=== PATIENT | female | born 1940 | race Caucasian/White ===

== ENCOUNTER 2018-02-06 18:48 | Emergency (ER) | payer MEDICARE, BC ==
[2018-02-06 19:08] VITALS: BP 162/72
[2018-02-06] MEDS ORDERED: methylPREDNISolone Sodium Succinate 125 MG/2 ML SDV IM ONE (19:45)
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
== END 2018-02-06 20:18 | disposition home or self-care (01) ==
LOC: JP.ED 18:48
DX: T78.40XA Allergy, unspecified, initial encounter (principal); I10 Essential (primary) hypertension; E03.9 Hypothyroidism, unspecified; E78.00 Pure hypercholesterolemia, unspecified; J45.909 Unspecified asthma, uncomplicated; Z79.899 Other long term (current) drug therapy; Z91.040 Latex allergy status; Z88.0 Allergy status to penicillin; Z91.018 Allergy to other foods
CPT/HCPCS: 96372; 99283; J2930; 99282

== ENCOUNTER 2018-05-18 21:02 | Emergency (ER) | payer MEDICARE, BC ==
[2018-05-18 22:01] VITALS: BP 182/83
[2018-05-18] MEDS ORDERED: Ketorolac 30 MG/ML SDV IM ONE (22:43)
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
[2018-05-18] MEDS ORDERED: Magnesium Oxide 400 MG Tab PO ONE (23:15)
== END 2018-05-18 23:33 | disposition home or self-care (01) ==
LOC: JP.ED 21:02
DX: G47.62 Sleep related leg cramps (principal); E78.00 Pure hypercholesterolemia, unspecified; E03.9 Hypothyroidism, unspecified; I10 Essential (primary) hypertension; I25.810 Atherosclerosis of coronary artery bypass graft(s) without angina pectoris; J45.909 Unspecified asthma, uncomplicated; Z79.899 Other long term (current) drug therapy; Z91.040 Latex allergy status
CPT/HCPCS: 36415; 80048; 81001; 83735; 85025; 96372; 99284; A9270; J1885

== ENCOUNTER 2018-12-28 09:50 | Emergency (ER) | payer MEDICARE ==
[2018-12-28 10:14] VITALS: BP 151/64
[2018-12-28] MEDS ORDERED: Ketorolac 30 MG/ML SDV IM ONE (10:37)
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
--- NOTE | 2018-12-28 11:12 | CRLCR ---
INDICATION: Pain COMPARISON: none TECHNIQUE: Three-view right shoulder FINDINGS: The bones are anatomically aligned. There is no evidence of a fracture or bone destruction. There is joint space narrowing, reactive sclerosis and hypertrophic spurring within the glenohumeral joint. There is also mild joint space narrowing within the AC joint. The right clavicle and upper right ribs appear intact. IMPRESSION: Osteoarthritis present within the glenohumeral joint. Dictated by Néstor Shannon MD @ Dec 28 2018 11:12AM Signed by Dr. Néstor Shannon @ Dec 28 2018 11:12AM
== END 2018-12-28 12:03 | disposition other institution (70) ==
LOC: JP.ED 09:50
DX: M25.511 Pain in right shoulder (principal); K21.9 Gastro-esophageal reflux disease without esophagitis; E78.00 Pure hypercholesterolemia, unspecified; I25.10 Atherosclerotic heart disease of native coronary artery without angina pectoris; Z95.1 Presence of aortocoronary bypass graft; Z88.0 Allergy status to penicillin; Z91.040 Latex allergy status; Z79.899 Other long term (current) drug therapy
CPT/HCPCS: 36415; 73030-RT; 80048; 85025; 85379; 96372; 99284-25; J1885

== ENCOUNTER 2019-04-03 13:28 | Emergency (ER) | payer MEDICARE ==
[2019-04-03 13:42] VITALS: BP 156/57
[2019-04-03] MEDS ORDERED: Naproxen 250 MG Tab PO ONE (14:00)
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
== END 2019-04-03 15:06 | disposition home or self-care (01) ==
LOC: JP.ED 13:28
DX: M54.41 Lumbago with sciatica, right side (principal); I10 Essential (primary) hypertension; I25.10 Atherosclerotic heart disease of native coronary artery without angina pectoris; E03.9 Hypothyroidism, unspecified; M06.9 Rheumatoid arthritis, unspecified; Z88.0 Allergy status to penicillin; Z91.040 Latex allergy status; Z91.018 Allergy to other foods; Z79.899 Other long term (current) drug therapy; Z95.0 Presence of cardiac pacemaker; Z95.5 Presence of coronary angioplasty implant and graft; Z95.1 Presence of aortocoronary bypass graft; Z90.49 Acquired absence of other specified parts of digestive tract; Z90.710 Acquired absence of both cervix and uterus
CPT/HCPCS: 99283; A9270

== ENCOUNTER 2023-04-30 18:39 | Emergency (ER) | payer MEDICARE ==
[2023-04-30] MEDS ORDERED: Sodium Chloride 0.9% 10 ML Syringe FLUSH PRN (18:46)
[2023-04-30] MEDS ORDERED: Sodium Chloride 0.9% 500 ML IV ONE (18:47)
[2023-04-30] MEDS ORDERED: Hypromellose 0.3% Ophth Soln 15 ML Bottle EYEBOTH ONE (18:54)
[2023-04-30 19:06] LABS: BASOPHILS PERCENT AUTO 0.4 % (0.1-1.3); EOSINOPHILS ABSOLUTE AUTO 0.04 K/uL (0.00-0.40); EOSINOPHILS PERCENT AUTO 0.7 % (0.0-5.4); HEMATOCRIT 41.2 % (34.3-46.0); HEMOGLOBIN 14.1 g/dL (11.2-15.5); IMMATURE GRAN PERCENT AUTO 0.4 % (0.0-0.7); LYMPHOCYTES ABSOLUTE AUTO 1.39 K/uL (0.8-3.3); LYMPHOCYTES PERCENT AUTO 25.2 % (11.4-47.7); MEAN CORPUSCULAR HEMOGLOBIN 32.6 pg (31.6-35.5); MEAN CORPUSCULAR HGB CONC 34.2 g/dL (31.6-35.5); MEAN CORPUSCULAR VOLUME 95.2 fL (81.4-99.0); MONOCYTES ABSOLUTE AUTO 0.37 K/uL (0.20-0.90); MONOCYTES PERCENT AUTO 6.7 % (3.3-12.6); NEUTROPHILS ABSOLUTE AUTO 3.68 K/uL (1.0-7.6); NEUTROPHILS PERCENT AUTO 66.6 % (40.0-78.1); PLATELET COUNT,PLT 245 K/uL (130-375); RED BLOOD CELL COUNT 4.33 M/uL (3.77-5.24); WHITE BLOOD CELL COUNT,WBC 5.5 K/uL (3.2-11.0)
[2023-04-30 19:07] LABS: BASOPHILS ABSOLUTE AUTO 0.02 K/uL (0.00-0.10); IMMATURE GRAN ABSOLUTE AUTO 0.02 K/uL (0.00-0.23)
[2023-04-30 19:08] VITALS: PULSE 80
[2023-04-30 19:19] LABS: ANION GAP 6.1 mmol/L (5.0-14.0); CALCIUM 9.8 mg/dL (8.5-10.1); CREATININE 0.7 mg/dL (0.6-1.0); EST CRCL DRUG DOSING (CG) 43.74 mL/min; POTASSIUM,K 3.6 mmol/L (3.6-5.2)
[2023-04-30 19:45] LABS: APPEARANCE,URINE CLOUDY (CLEAR); BILIRUBIN,URINE NEGATIVE (NEGATIVE); COLOR,URINE YELLOW (YELLOW); GLUCOSE,URINE NEGATIVE (NEGATIVE); KETONES,URINE NEGATIVE (NEGATIVE); LEUKOCYTE ESTERASE,URINE LARGE (NEGATIVE); NITRITE,URINE NEGATIVE (NEGATIVE); OCCULT BLOOD,URINE SMALL (NEGATIVE); PH,URINE 7.5 (5.0-8.0); PROTEIN,URINE TRACE mg/dL (NEGATIVE); UROBILINOGEN,URINE 0.2 EU/dL (0.2-1.0)
[2023-04-30 19:49] LABS: BACTERIA,URINE MANY; EPITHELIAL CELLS,URINE NOT SEEN; MUCUS,URINE NOT SEEN; WBC,URINE PACKED (0-5)
[2023-04-30 19:50] LABS: AMORPHOUS SEDIMENT,URINE NOT SEEN
[2023-04-30] MEDS ORDERED: Nitrofurantoin Monohydrate/Macrocrystalline 100 MG Cap PO ONE (19:54)
[2023-04-30] MEDS ORDERED: amLODIPine 5 MG Tab PO ONE (20:03)
[2023-04-30 20:50] VITALS: BP 205/98
== END 2023-04-30 22:02 ==
LOC: JP.ED 18:39
DX: J30.9 Allergic rhinitis, unspecified (principal); T50.905A Adverse effect of unspecified drugs, medicaments and biological substances, initial encounter; N30.01 Acute cystitis with hematuria; I10 Essential (primary) hypertension; I25.10 Atherosclerotic heart disease of native coronary artery without angina pectoris; E78.00 Pure hypercholesterolemia, unspecified; E03.9 Hypothyroidism, unspecified; Z91.018 Allergy to other foods; Z91.040 Latex allergy status; Z88.0 Allergy status to penicillin; Z88.8 Allergy status to other drugs, medicaments and biological substances; Z79.82 Long term (current) use of aspirin; Z79.899 Other long term (current) drug therapy
CPT/HCPCS: 36415; 80048; 81001; 84484; 85025; 87086; 87088; 87186; 96360; 96361; 99285; A9270; J7040

== ENCOUNTER 2024-11-24 20:59 | Emergency (ER) | payer BC, MEDICARE ==
[2024-11-24 21:07] VITALS: BP 133/56; PULSE 76
[2024-11-24 21:21] LABS: EOSINOPHILS PERCENT AUTO 0.2 % (0.0-5.4); HEMATOCRIT 35.6 % (34.3-46.0); HEMOGLOBIN 12.3 g/dL (11.2-15.5); IMMATURE GRAN PERCENT AUTO 0.4 % (0.0-0.7); LYMPHOCYTES ABSOLUTE AUTO 0.28 K/uL (0.8-3.3); LYMPHOCYTES PERCENT AUTO 5.1 % (11.4-47.7); MEAN CORPUSCULAR HEMOGLOBIN 32.9 pg (31.6-35.5); MEAN CORPUSCULAR HGB CONC 34.6 g/dL (31.6-35.5); MEAN CORPUSCULAR VOLUME 95.2 fL (81.4-99.0); MONOCYTES PERCENT AUTO 5.5 % (3.3-12.6); NEUTROPHILS ABSOLUTE AUTO 4.85 K/uL (1.0-7.6); NEUTROPHILS PERCENT AUTO 88.8 % (40.0-78.1); PLATELET COUNT,PLT 178 K/uL (130-375); RED BLOOD CELL COUNT 3.74 M/uL (3.77-5.24); WHITE BLOOD CELL COUNT,WBC 5.5 K/uL (3.2-11.0)
[2024-11-24 21:25] LABS: EOSINOPHILS ABSOLUTE AUTO 0.01 K/uL (0.00-0.40); IMMATURE GRAN ABSOLUTE AUTO 0.02 K/uL (0.00-0.23)
[2024-11-24 21:43] LABS: A/G RATIO 1.2 (1.2-2.2); ALANINE AMINOTRANSFERASE,ALT 11 U/L (12-78); ALBUMIN 3.2 g/dL (3.4-5.0); ALKALINE PHOSPHATASE 74 U/L (46-116); ANION GAP 12.1 mmol/L (5.0-14.0); ASPARTATE AMNIOTRANSFERASE,AST 25 U/L (15-37); BILIRUBIN TOTAL 0.6 mg/dL (0.2-1.0); BLOOD UREA NITROGEN,BUN 19 mg/dL (7-18); CALCIUM 8.1 mg/dL (8.5-10.1); CARBON DIOXIDE,CO2 26 mmol/L (21-32); CHLORIDE,CL 104 mmol/L (100-108); CREATININE 0.8 mg/dL (0.6-1.0); ESTIMATED GFR 73 mL/min (>60); GLUCOSE RANDOM 119 mg/dL (74-106); POTASSIUM,K 3.1 mmol/L (3.6-5.2); PROTEIN TOTAL,TP 5.9 g/dL (6.4-8.2); SODIUM,NA 139 mmol/L (140-148)
[2024-11-24 21:46] LABS: LACTIC ACID 1.4 mmol/L (0.4-2.0)
[2024-11-24 22:19] LABS: APPEARANCE,URINE CLEAR (CLEAR); BILIRUBIN,URINE NEGATIVE (NEGATIVE); COLOR,URINE YELLOW (YELLOW); GLUCOSE,URINE NEGATIVE (NEGATIVE); KETONES,URINE NEGATIVE (NEGATIVE); LEUKOCYTE ESTERASE,URINE NEGATIVE (NEGATIVE); NITRITE,URINE NEGATIVE (NEGATIVE); OCCULT BLOOD,URINE NEGATIVE (NEGATIVE); PROTEIN,URINE TRACE mg/dL (NEGATIVE); UROBILINOGEN,URINE 0.2 EU/dL (0.2-1.0)
[2024-11-24 22:29] LABS: AMORPHOUS SEDIMENT,URINE NOT SEEN; BACTERIA,URINE RARE; EPITHELIAL CELLS,URINE FEW; MUCUS,URINE RARE; WBC,URINE NOT SEEN (0-5)
[2024-11-24] MEDS: Levofloxacin 250 MG Tab PO ONE (23:44)
== END 2024-11-25 00:45 ==
LOC: JP.ED 20:59
DX: J18.9 Pneumonia, unspecified organism (principal); I25.10 Atherosclerotic heart disease of native coronary artery without angina pectoris; I10 Essential (primary) hypertension; E78.00 Pure hypercholesterolemia, unspecified; J45.909 Unspecified asthma, uncomplicated; E03.9 Hypothyroidism, unspecified; Z90.49 Acquired absence of other specified parts of digestive tract; Z90.710 Acquired absence of both cervix and uterus; Z88.0 Allergy status to penicillin; Z88.8 Allergy status to other drugs, medicaments and biological substances; Z91.040 Latex allergy status; Z91.018 Allergy to other foods; Z79.82 Long term (current) use of aspirin; Z79.51 Long term (current) use of inhaled steroids; Z79.890 Hormone replacement therapy; Z79.899 Other long term (current) drug therapy
CPT/HCPCS: 36415; 71045; 80053; 81001; 83605; 85025; 86140; 87428; 99285; A9270; 99284

== ENCOUNTER 2025-04-13 10:08 | Emergency (ER) | payer MEDICARE ==
[2025-04-13 10:21] VITALS: BP 169/68; PULSE 60
== END 2025-04-13 12:54 | disposition home or self-care (01) ==
LOC: JP.ED 10:08
DX: S06.0X0A Concussion without loss of consciousness, initial encounter (principal); I25.10 Atherosclerotic heart disease of native coronary artery without angina pectoris; I10 Essential (primary) hypertension; E78.00 Pure hypercholesterolemia, unspecified; E03.9 Hypothyroidism, unspecified; Z90.49 Acquired absence of other specified parts of digestive tract; Z90.710 Acquired absence of both cervix and uterus; Z88.0 Allergy status to penicillin; Z88.8 Allergy status to other drugs, medicaments and biological substances; Z91.040 Latex allergy status; Z91.018 Allergy to other foods; Z79.82 Long term (current) use of aspirin; Z79.51 Long term (current) use of inhaled steroids; Z79.890 Hormone replacement therapy; Z79.899 Other long term (current) drug therapy; W01.198A Fall on same level from slipping, tripping and stumbling with subsequent striking against other object, initial encounter
CPT/HCPCS: 70450; 72125; 76377; 99283; 99284